=== PATIENT | male | born 1990 | race American Indian/Alaskan Native ===

== ENCOUNTER 2018-01-28 15:54 | Emergency (ER) | payer MEDICAID, OTHER ==
[2018-01-28 15:55] VITALS: BMI 20.3
[2018-01-28 16:15] VITALS: BP 125/78; PULSE 67; RESP 18; TEMP 98.6; O2SAT 98
--- NOTE | 2018-01-28 16:47 | ED PDOC ---
Arrival/HPI - General Chief Complaint: Abnormal Skin Integrity Time Seen by Provider: 01/28/18 16:02 - History of Present Illness Narrative History of Present Illness (Text): 01/28/18 16:20 27 yr old male w/ no pmhx p/w cyst to R chest. Pt notes cyst started 2 days ago , drained on its own while in the shower. Pt notes that the drainage was yello and foul smelling. Pt notes redness to area, and mild pain, without any drainage since. No CP or SOB however. No fever, chills or night sweats. No neck stiffness. First time occurence. Pt notes he works in the [employer]. No other complaints. Time/Duration: Other (2d) Symptom Onset: Gradual Past Medical History - Provider Review Nursing Documentation Reviewed: Yes - Travel History Have you recently traveled outside [place] w/in the past 3 mons?: No - Past History Past History: Non-Contributing - Infectious Disease Hx of Infectious Diseases: None - Tetanus Immunization Tetanus Immunization: Up to Date - Cardiac Hx Cardiac Disorders: No - Pulmonary Hx Respiratory Disorders: No - Musculoskeletal/Rheumatological Hx Musculoskeletal Disorders: No - Psychiatric Hx Psychophysiologic Disorder: No Hx Substance Use: No - Anesthesia Hx Anesthesia: No Family/Social History - Physician Review Nursing Documentation Reviewed: Yes Family/Social History: Unknown Family HX Smoking Status: Former Smoker Hx Alcohol Use: No Hx Substance Use: No Allergies/Home Meds Allergies/Adverse Reactions: Allergies shrimp Allergy (Verified 01/28/18 16:15) RASH Review of Systems - Review of Systems Constitutional: Normal Eyes: Normal ENT: Normal Respiratory: Normal Cardiovascular: Normal Gastrointestinal: Normal Genitourinary Male: Normal Musculoskeletal: Normal Skin: Other (cyst to R chest) Neurological: Normal Endocrine: Normal Hemo/Lymphatic: Normal Psychiatric: Normal Physical Exam Vital Signs Reviewed: Yes Vital Signs Temp Pulse Resp BP Pulse Ox 01/28/18 16:12 98.6 F 67 18 125/78 98 Temperature: Afebrile Blood Pressure: Normal Pulse: Regular Respiratory Rate: Normal Appearance: Positive for: Well-Appearing, Non-Toxic, Comfortable Pain Distress: None Mental Status: Positive for: Alert and Oriented X 3 - Systems Exam Head: Present: Atraumatic, Normocephalic Pupils: Present: PERRL Extroacular Muscles: Present: EOMI Conjunctiva: Present: Normal Mouth: Present: Moist Mucous Membranes Neck: Present: Normal Range of Motion Respiratory/Chest: Present: Clear to Auscultation, Good Air Exchange. No: Respiratory Distress, Accessory Muscle Use Cardiovascular: Present: Regular Rate and Rhythm, Normal S1, S2. No: Murmurs Abdomen: No: Tenderness, Distention, Peritoneal Signs Back: Present: Normal Inspection Upper Extremity: Present: Normal Inspection. No: Cyanosis, Edema Lower Extremity: Present: Normal Inspection. No: Edema Neurological: Present: GCS=15, CN II-XII Intact, Speech Normal Skin: Present: Warm, Dry, Erythematous (over R chest 2x2 cm surface, indurated, without fluctuance or appreciable drainage. No crepitus or tracking. ). No: Rashes Psychiatric: Present: Alert, Oriented x 3, Normal Insight, Normal Concentration Medical Decision Making ED Course and Treatment: 01/28/18 1620 27 yr old m p/w cellulitis, previous abscess now drained without notable fluctuance on my exam and with only cobble stoning on bedside US. 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 No hx of immunocompromise per pt. No chest pain. No nausea. No SIRS vitals. Clear for d/c home w/ meds and f/ u. Disposition/Present on Arrival - Present on Arrival Any Indicators Present on Arrival: No History of DVT/PE: No History of Uncontrolled Diabetes: No Urinary Catheter: No History of Decub. Ulcer: No History Surgical Site Infection Following: None - Disposition Have Diagnosis and Disposition been Completed?: Yes Diagnosis: Cellulitis of chest wall Disposition: HOME/ ROUTINE Disposition Time: 16:30 Patient Plan: Discharge Patient Problems: Current Active Problems Problem Status Onset Cellulitis of chest wall Acute Condition: GOOD Discharge Instructions (ExitCare): Cellulitis (ED) Additional Instructions: Use a warm washcloth to area 4 times a day for 5 minutes over area. DIDI GONZALES, thank you for letting us take care of you today. Your provider was Marshal Smith and you were treated for CYST. The emergency medical care you received today was directed at your acute symptoms. If you were prescribed any medication, please fill it and take as directed. It may take several days for your symptoms to resolve. Return to the Emergency Department if your symptoms worsen, do not improve, or if you have any other problems. Please contact your doctor or call one of the physicians/clinics you have been referred to that are listed on the Patient Visit Information form that is included in your discharge packet. Bring any paperwork you were given at discharge with you along with any medications you are taking to your follow up visit. Our treatment cannot replace ongoing medical care by a primary care provider outside of the emergency department. Thank you for allowing the [facility] team to be part of your care today. If you had an X-Ray or CT scan: A Radiologist will review the ED reading if any change in treatment is needed we will contact you. If you had a blood, urine, or wound culture: It will take several days for the results, if any change in treatment is needed we will contact you. If you had an STI test: It will take 48 hours for the results. Please call after 1 week if you have not heard back. Prescriptions: Doxycycline Hyclate 100 mg PO BID 5 Days #10 capsule Referrals: Fiorella Chamorro MD [Medical Doctor] - Follow up with primary Forms: [employer] (Mongolian)
== END 2018-01-28 16:42 | disposition home or self-care (01) ==
LOC: ED 15:54
DX: L03.313 Cellulitis of chest wall (principal); Z87.891 Personal history of nicotine dependence